=== PATIENT | female | born 1975 | race Two or more races ===

== ENCOUNTER 2019-12-06 22:08 | Emergency (ER) | payer OTHER ==
[~2019-12-06] VITALS: Ht 162.6 cm; Wt 98.0 kg
[~2019-12-06 22:08] MED LIST: MONT10TA6 PO
[2019-12-06] MEDS ORDERED: MORPHINE SULFATE 4 MG/ML, 1ML IVPush PRN (22:30)
[2019-12-06] MEDS ORDERED: SODIUM CHLORIDE FLUSH 10ML SYR IVF ONE (22:30)
[2019-12-06] MEDS ORDERED: LOSARTAN 100 MG TAB PO ONE (22:30)
[2019-12-06] MEDS ORDERED: ONDANSETRON 2MG/ML, 2ML IVPush ONE (22:30)
--- NOTE | 2019-12-06 22:30 | NUR ---
THIS IS A 44Y F THAT COMES IN TONIGHT WITH HER MOTHER. PT COMPLAINS OF ABD PAIN X2 WKS PT WAS SEEN AT [facility] BUT UNABLE TO GET US BECAUSE OF CLOSURES. PT STS SHE DOES NOT NEED MEDICATION AT THIS TIME FOR PAIN OR NAUSEA. PT CONNECTED TO MONITORING, VSS. [place]
--- NOTE | 2019-12-06 22:32 | NUR ---
LAB AT BEDSIDE.
--- NOTE | 2019-12-06 22:33 | NUR ---
PT STS SHE DOES NOT WANT PAIN MEDICATION AT THIS TIME HER PAIN IS MORE OF AN ACHE. PT MOM STS SHE NEEDS MEDS PT DENIES THIS NEED
[2019-12-06 22:50] LABS: BASOPHILS # (AUTO) 0.15 x10^3/uL (0-0.1); BASOPHILS % (AUTO) 1 % (0-1); EOSINOPHILS # (AUTO) 0.24 x10^3/uL (0-0.4); EOSINOPHILS % (AUTO) 2 % (1-7); LYMPHOCYTES # (AUTO) 2.88 x10^3/uL (1-3.4); LYMPHOCYTES % (AUTO) 27 % (22-44); MD NO; MEAN CORPUSCULAR HEMOGLOBIN 30.8 pg (27.0-34.8); MEAN CORPUSCULAR HGB CONC 33.3 g/dL (32.4-35.8); MEAN CORPUSCULAR VOLUME 92.6 fL (80-100); MONOCYTES # (AUTO) 0.86 x10^3/uL (0.2-0.8); MONOCYTES % (AUTO) 8 % (2-9); NEUTROPHILS # (AUTO) 6.74 x10^3/uL (1.8-6.8); NEUTROPHILS % (AUTO) 62 % (42-75); PLATELET COUNT 276 x10^3/uL (130-400); RED BLOOD COUNT 4.63 x10^6/uL (3.82-5.3)
[2019-12-06 22:59] LABS: ALBUMIN 3.5 g/dL (3.4-5.0); ANION GAP 7 mmol/L (5-15); CALCIUM 8.7 mg/dL (8.5-10.1); CHLORIDE 109 mmol/L (98-107)
[2019-12-06 23:05] LABS: ALANINE AMINOTRANSFERASE 44 U/L (12-78); ALKALINE PHOSPHATASE 105 U/L (45-117); BILIRUBIN,TOTAL 0.5 mg/dL (0.2-1.0); CREATININE 0.75 mg/dL (0.55-1.02); TOTAL PROTEIN 7.4 g/dL (6.4-8.2)
[2019-12-07 00:21] VITALS: BP 141/78
--- NOTE | 2019-12-07 00:22 | NUR ---
Patient/Caregiver given discharge instructions and they have confirmed that they understand the instructions. Patient ambulatory with steady gait.
== END 2019-12-07 00:31 | disposition home or self-care (01) ==
LOC: ED 22:44
DX: K80.80 Other cholelithiasis without obstruction (principal); R93.5 Abnormal findings on diagnostic imaging of other abdominal regions, including retroperitoneum; I10 Essential (primary) hypertension
CPT/HCPCS: 36415; 76700; 80053; 83690; 84703; 85025; 93005; 99285

== ENCOUNTER 2020-07-24 22:38 | Day surgery (SDC) | payer OTHER ==
[~2020-07-24] VITALS: Ht 162.6 cm; Wt 97.0 kg
--- NOTE | 2020-07-24 23:23 | NUR ---
PT IN GOWN IN [facility] WITH SHANON MCCLAIN, AT FOR HISTORY AND ASSESSMENT. PT HAS CALL LIGHT WITHIN REACH. PT EDUCATED ON ER PROCESS AND POC AND VERBALIZES UNDERSTANDING. AWAITING ORDERS AT THIS TIME.
[2020-07-25 00:18] LABS: BASOPHILS % (AUTO) 1 % (0-1); EOSINOPHILS % (AUTO) 0 % (1-7); LYMPHOCYTES % (AUTO) 12 % (22-44); MEAN CORPUSCULAR HEMOGLOBIN 29.7 pg (27.0-34.8); MEAN CORPUSCULAR HGB CONC 32.5 g/dL (32.4-35.8); MEAN PLATELET VOLUME 8.3 fL (7.4-10.4); MONOCYTES % (AUTO) 6 % (2-9); NEUTROPHILS % (AUTO) 80 % (42-75); PLATELET COUNT 297 x10^3/uL (130-400); RED BLOOD COUNT 4.52 x10^6/uL (3.82-5.3); RED CELL DISTRIBUTION WIDTH 14.1 % (9.6-15.2)
[2020-07-25 00:20] LABS: MD NO
[2020-07-25 00:26] LABS: ALANINE AMINOTRANSFERASE 46 U/L (12-78); ALBUMIN 3.4 g/dL (3.4-5.0); ANION GAP 6 mmol/L (5-15); CALCIUM 8.6 mg/dL (8.5-10.1); CHLORIDE 105 mmol/L (98-107)
--- NOTE | 2020-07-25 00:28 | NUR ---
PT INSTRUCTED AGAIN ON NEED FOR URINE SAMPLE. PER PT, PT UNABLE TO VOID AT THIS TIME. VSS AND UPDATED IN EMR AT THIS TIME.
[2020-07-25 00:31] LABS: ALKALINE PHOSPHATASE 109 U/L (45-117); BILIRUBIN,TOTAL 1.5 mg/dL (0.2-1.0); TOTAL PROTEIN 7.2 g/dL (6.4-8.2)
[2020-07-25] MEDS ORDERED: HYDROcodone/APAP 5/325 TABLET ONE (00:58)
[2020-07-25] MEDS ORDERED: ONDANSETRON ODT 4 MG ONE (00:58)
[2020-07-25] MEDS ORDERED: HYDROcodone/APAP 5/325 TABLET PO ONE (01:00)
[2020-07-25] MEDS ORDERED: ONDANSETRON ODT 4 MG PO ONE (01:00)
--- NOTE | 2020-07-25 01:50 | NUR ---
Break RN: assumed care of pt on behalf of primary RN for lunch break. Lynda ARGUELLES at bedside for recheck
[2020-07-25] MEDS ORDERED: MORPHINE SULFATE 4 MG/ML, 1ML IVPush PRN (02:30)
[2020-07-25] MEDS ORDERED: CEFOTETAN PMX 1GM/50ML 50 ML IVPB ONE (02:30)
[2020-07-25] MEDS ORDERED: ONDANSETRON 2MG/ML, 2ML IVPush PRN ×3 (02:30→11:30)
[2020-07-25] MEDS ORDERED: SODIUM CHLORIDE 0.9% 1,000 ML IV ONE (02:30)
[2020-07-25] MEDS ORDERED: LOSA25TA25 PO (02:55)
--- NOTE | 2020-07-25 02:55 | NUR ---
REPORT OF PT TO PADMINI HUGHES. ALL QUESTIONS ANSWERED. PIV ESTABLISHED AT THIS TIME. PT BEING MEDICATED PER MAR. ALL PT QUESTIONS ANSWERED AT THIS TIME. TECH PAGED FOR TRANSPORT OF PT TO FLOOR.
[2020-07-25] MEDS ORDERED: MORPHINE SULFATE 4 MG/ML, 1ML ONE (03:00)
--- NOTE | 2020-07-25 03:03 | NUR ---
pt medicated per nov at this time. spoke with yan about administration of abx on floor. will tube abx to floor when pharmacy sends.
[2020-07-25 04:11] VITALS: BP 144/82
[2020-07-25] MEDS ORDERED: BUPIVACAINE/PF 0.25% ONE (06:09)
[2020-07-25] MEDS ORDERED: FENTANYL PF 250 MCG/5ML ONE (06:57)
[2020-07-25] MEDS ORDERED: MIDAZOLAM 1 MG/ML, 2ML ONE (06:57)
[2020-07-25 07:05] VITALS: BP 154/96
[2020-07-25] MEDS ORDERED: hydrALAzine 20 MG/ML, 1ML IV PRN (07:30)
[2020-07-25] MEDS ORDERED: EPHEDRINE 50 MG/ML, 1ML IVPush PRN (07:30)
[2020-07-25] MEDS ORDERED: PROMETHAZINE 25 MG/ML, 1ML IVPush PRN (07:30)
[2020-07-25] MEDS ORDERED: LABETALOL 5MG/ML, 20ML IV PRN (07:30)
[2020-07-25] MEDS ORDERED: FENTANYL PF 100 MCG/2ML IV PRN (07:30)
[2020-07-25] MEDS ORDERED: ACETAMINOPHEN 325 MG TABLET PO PRN (07:30)
[2020-07-25] MEDS ORDERED: MEPERIDINE/PF 25MG/0.5ML IVPush PRN (07:30)
[2020-07-25] MEDS ORDERED: OXYcodone 5 MG/5 ML ORAL.SOL UDC PO PRN (07:30)
[2020-07-25] MEDS ORDERED: HYDROmorphone 1 MG/ML, 1ML INJ IVPush PRN (07:30)
[2020-07-25] MEDS ORDERED: KETOROLAC 30 MG/1 ML ONE (08:19)
[2020-07-25] MEDS ORDERED: SUGAMMADEX 200 MG/2 ML IVPush ONE (08:19)
[2020-07-25] MEDS ORDERED: ROCURONIUM 10MG/ML,5ML ONE (08:24)
[2020-07-25] MEDS ORDERED: PROPOFOL 10 MG/ML, 20ML ONE (08:24)
[2020-07-25] MEDS ORDERED: DEXAMETHASONE 4 MG/ML, 1ML ONE (08:24)
[2020-07-25] MEDS ORDERED: SUCCINYLCHOLINE 20 MG/ML, 10ML ONE (08:24)
[2020-07-25] MEDS ORDERED: ONDANSETRON 2MG/ML, 2ML ONE (08:24)
[2020-07-25] MEDS ORDERED: BUPIVACAINE/PF 0.25% IM ONE (08:29)
[2020-07-25] MEDS ORDERED: OXYcodone 5 MG/5 ML ORAL.SOL UDC ONE (08:59)
[2020-07-25] MEDS ORDERED: MEPERIDINE/PF 25MG/ML,1ML ONE (08:59)
[2020-07-25] MEDS ORDERED: ACETAMINOPHEN 650 MG/20.3 ML UDC ONE (09:12)
[2020-07-25] MEDS ORDERED: HYDROcodone/APAP 5/325 TABLET PO PRN (11:30)
[2020-07-25] MEDS ORDERED: LACTATED RINGERS 1,000 ML IV SCH (11:30)
[2020-07-25 13:28] VITALS: BP 135/79
[2020-07-25] MEDS ORDERED: HYDR-3240 PO (14:58)
== END 2020-07-25 | disposition home or self-care (01) ==
LOC: ED 07-25 00:05 → UNDOADMIN 07-25 02:20 → EDIP 07-25 02:20 → 4NE 07-25 02:59 → ED 07-25 10:53 → 4NE 07-25 16:06 → DCLOUNGE 07-25 16:06 → UNDODISIN 07-25 16:15
PROVIDERS: ATTEND Student in an Organized Health Care Education/Training Program
DX: K80.00 Calculus of gallbladder with acute cholecystitis without obstruction (principal); Z20.828 Contact with and (suspected) exposure to other viral communicable diseases; I10 Essential (primary) hypertension; Z79.899 Other long term (current) drug therapy
CPT/HCPCS: 36415; 47562; 74021; 76700; 80053; 83690; 84703; 85025; 87635; 88304; 93005; 99285; J0330; J1100; J1885; J2175; J2250; J2270; J2405; J2704; J3010; J7030; Q0162

== ENCOUNTER 2020-12-02 12:09 | Emergency (ER) | payer MEDICAID, OTHER ==
[~2020-12-02] VITALS: Ht 162.6 cm; Wt 101.0 kg
[~2020-12-02 12:09] MED LIST changes: +HYDR-1067 PO; +LOSA25TA25 PO
--- NOTE | 2020-12-02 12:35 | NUR ---
PT HERE FOR C/O HIGH BP, CHECKED BP AT HOME THIS AM IT WAS 138/96, AND 137/103, PT ALSO REPORTS FEELING HOT AND SWEATY LAST NIGHT, "IT FELT LIKE I RAN A MARATHON".
[2020-12-02] MEDS ORDERED: LOSA100T14 PO (12:40)
--- NOTE | 2020-12-02 13:13 | NUR ---
PT RESTING ON [employer] IN [facility].
[2020-12-02 14:09] LABS: ANION GAP 2 mmol/L (5-15); CALCIUM 8.8 mg/dL (8.5-10.1); CHLORIDE 109 mmol/L (98-107); CREATININE 0.72 mg/dL (0.55-1.02)
[2020-12-02 14:12] LABS: BASOPHILS % (AUTO) 1 % (0-1); EOSINOPHILS % (AUTO) 2 % (1-7); LYMPHOCYTES % (AUTO) 29 % (22-44); MEAN CORPUSCULAR HEMOGLOBIN 29.6 pg (27.0-34.8); MEAN CORPUSCULAR HGB CONC 33.4 g/dL (32.4-35.8); MONOCYTES % (AUTO) 8 % (2-9); NEUTROPHILS % (AUTO) 60 % (42-75); PLATELET COUNT 335 x10^3/uL (130-400)
[2020-12-02 14:15] LABS: MD NO
[2020-12-02 14:36] VITALS: BP 141/84
== END 2020-12-02 15:09 | disposition home or self-care (01) ==
LOC: ED 13:55
DX: I10 Essential (primary) hypertension (principal); R94.31 Abnormal electrocardiogram [ECG] [EKG]; R42 Dizziness and giddiness; R51.9 Headache, unspecified
CPT/HCPCS: 36415; 71045; 80048; 85025; 93005; 99285